=== PATIENT | female | born 1990 | race Caucasian/White ===

== ENCOUNTER 2017-06-10 23:56 | Emergency (ER) | payer SELFPAY ==
--- NOTE | ~2017-06-10 | CR72 ---
[facility] A Service of [facility] RADIOLOGY TEXT RESULTS PATIENT: FRANCISCA JONES LOCATION: SED : 89 UNIT #: [id number] AGE: [address]: Jhon So MD SEX: F ORDER DR: [id number] [place] [id number] E MR#: [id number] Acc #: [id number] NAME: FRANCISCA JONES : 1990 SEX: F STUDY DATE/TIME: 06/11/2017 0:49 UNIT: SED ROOM: STUDY DESCRIPTION: CR Chest Single View Portable Attending Physician: Jhon So M.D. Ordering Physician: Jhon So M.D. MEDICAL IMAGING REPORT This report is preliminary unless electronic signature is present. EXAM Portable chest INDICATION Chest pain for 3 days, chest pressure. FINDINGS A portable upright view of the chest was obtained. There is no comparison. The heart size and vascularity are normal and the lungs are clear. The bones are normal. IMPRESSION No active disease. Dictated by... Jabier Worthy M.D. THIS IS AN ELECTRONICALLY VERIFIED REPORT Jabier Worthy M.D. at 06/11/2017 5:53 AM Jemma TD: 06/11/2017 02:34 JOB #: [id number] MEDICAL IMAGING REPORT Page 1 of 1
--- NOTE | ~2017-06-10 | EKG ---
PATIENT: FRANCISCA JONES UNIT #: [id number] Ventricular Rate: 73 BPM Atrial Rate: 73 BPM P-R Interval: 152 ms QRS Duration: 96 ms Q-T Interval: 402 ms QTC Calculation(Bezet): 442 ms P Carpio: 40 degrees Calculated R Carpio: 18 degrees Calculated T Carpio: 34 degrees Diagnosis Line: Normal sinus rhythm Diagnosis Line: Normal ECG Diagnosis Line: No previous ECGs available Diagnosis Line: Confirmed by DAJA RANKIN MD ([id number]) on Diagnosis Line: 06/12/2017 9:02:23 AM INTERPRETING MD: CHUCHO LYON
[2017-06-11] MEDS ORDERED: NO MEDICATIONS (00:17)
[2017-06-11 01:02] LABS: URINE SOURCE CLEAN CATCH
[2017-06-11 01:04] LABS: URINE APPEARANCE CLEAR; URINE BILIRUBIN NEG (NEG); URINE BLOOD NEG (NEG); URINE COLOR YELLOW; URINE GLUCOSE NEG (NORM); URINE KETONE NEG (NEG); URINE LEUKOCYTE ESTERASE NEG (NEG); URINE NITRATE NEG (NEG); URINE PROTEIN NEG (NEG); URINE SPECIFIC GRAVITY <=1.005 (1.003-1.035); URINE UROBILINOGEN 0.2 MG/DL (NORM)
[2017-06-11 01:06] LABS: MICRO INDICATED? NO
[2017-06-11 01:18] LABS: BASOPHIL% 0.6 % (0-2.5); EOSINOPHIL# 0.1 X10e3 (0-0.7); EOSINOPHIL% 1.4 % (0.0-7.0); HEMATOCRIT 41.2 % (35.0-45.0); HEMOGLOBIN 13.5 gm/dL (12.0-16.0); LYMPHOCYTE# 2.6 X10e3 (1.0-3.5); LYMPHOCYTE% 31.5 % (17.0-45.0); MEAN CELL VOLUME 91.4 FL (83-96); MEAN CORPUSCULAR HGB CONC 32.9 g/dL (30-36); MEAN PLATELET VOLUME 8.5 FL (6.5-11.5); MONOCYTE# 0.6 X10e3 (0-1.0); MONOCYTE% 6.8 % (3.0-12.0); NEUTROPHIL# 4.9 X10e3 (1.5-7.1); NEUTROPHIL% 59.7 % (40-75); PLATELET COUNT 194 X10e3 (140-420); RED CELL DISTRIBUTION WIDTH 14.5 % (11.0-15.5); WHITE BLOOD COUNT 8.2 X10e3 (4.0-10.5)
[2017-06-11 01:28] LABS: DIFF IND NO
[2017-06-11 01:32] LABS: ALBUMIN SERUM 4.5 g/dL (3.5-5.0); ALKALINE PHOSPHATASE 70 U/L (32-92); ALT (SGPT) 79 U/L (10-40); AST (SGOT) 38 U/L (10-42); BILIRUBIN, DIRECT 0.1 mg/dL (0.0-0.2); BILIRUBIN,INDIRECT 0.5 mg/dL (0.0-0.9); BILIRUBIN,TOTAL 0.6 mg/dL (0.2-2.0); BLOOD UREA NITROGEN 11 mg/dL (9-23); BUN/CREATININE RATIO 15.71; CARBON DIOXIDE 27 mmol/L (22-31); CHLORIDE 99 mmol/L (100-111); CREATININE SERUM 0.7 mg/dL (0.6-1.4); GLOM FILT RATE Estimated 118.7 mL/min (>60); GLUCOSE FASTING 97 mg/dL (70-110); POTASSIUM 3.5 mmol/L (3.5-5.1); PROTEIN TOTAL SERUM 7.8 g/dL (6.0-8.3); SODIUM 136 mmol/L (135-145)
[2017-06-11 01:33] LABS: ALCOHOL BLOOD <5 mg/dL (0)
[2017-06-11 11:14] LABS: POC - CKMB <1.0 ng/mL (0.0-7.9); POC - TROPONIN <0.05 ng/mL (<=0.05)
== END 2017-06-11 03:20 | disposition home or self-care (01) ==
LOC: SED 23:56
PROVIDERS: Emergency Medicine
DX: F10.239 Alcohol dependence with withdrawal, unspecified (principal); R07.9 Chest pain, unspecified; F41.9 Anxiety disorder, unspecified; D64.9 Anemia, unspecified; F17.200 Nicotine dependence, unspecified, uncomplicated
CPT/HCPCS: 71010; 80048; 80076; 81003; 82553; 83735; 84484; 85025; 93005; 96361; 96374; 96375; 99285; G0480; J2060; J3411